=== PATIENT | female | born 1950 | race Caucasian/White ===

== ENCOUNTER 2016-12-22 11:45 | Observation (INO) | payer OTHER ==
[2016-12-22] VITALS (11 sets, daily range): BP systolic 123–201; BP diastolic 56–112; PULSE 74–147; RESP 12–22; TEMP 97.7–98.4; O2SAT 95–100
[~2016-12-22] VITALS: Ht 162.6 cm; Wt 68.0 kg
[2016-12-22] MEDS ORDERED: SODIUM CHLORIDE 0.9% FLUSH 5 ML FLUSH IVF PRN ×2 (12:00→15:15)
[2016-12-22] MEDS ORDERED: DILTIAZEM HCL 25 MG/5 ML VIAL IV ONE (12:00)
[2016-12-22] MEDS ORDERED: ASPIRIN 81 MG CHEW TAB PO ONE (12:00)
[2016-12-22] MEDS ORDERED: LISI-519 PO (12:01)
[2016-12-22] MEDS ORDERED: VITA100T50 PO (12:01)
[2016-12-22] MEDS ORDERED: CALC-131 PO (12:01)
--- NOTE | 2016-12-22 12:14 | PD ---
HPI Chief Complaint: Cardiac Complaint Time Seen by Provider: 12:02 Travel History International Travel<30 days: No Contact w/Intl Traveler<30days: No Traveled to known affect area: No History of Present Illness HPI Patient is a 66-year-old female presenting to emergency for evaluation of chest pain. Patient states he started with tightness in her throat that radiated to her left upper chest wall. She reports feeling palpitations and shortness of breath accompanying the pain. She denies any nausea, vomiting, abdominal pain, back pain, headaches. Patient's past medical history includes mitral valve prolapse, hypertension. Patient takes lisinopril 5 mg daily at bedtime. She reports compliance with this medication. Her last stress test was in 2005 and she had an echocardiogram done 2 years ago. She has seen Dr. Arana one time in the past and her primary care provider is Dr. Abel Moralez. Patient denies any illicit drug use, tobacco, alcohol. She denies taking any over-the- counter supplementations other than vitamin D, calcium, multivitamin. PFSH Past Medical History Cardiovascular Problems: Yes (MITRAL VALVE PROLAPSE) Hypertension: Yes Influenza Vaccination: No ?: Not Past Surgical History Surgical History: No Previous Surgery Social History Alcohol Use: Yes (WINE OCCASIONALLY) Tobacco Use: No Substance Use: No Allergies-Medications (Allergen,Severity, Reaction): Coded Allergies: No Known Allergies (Unverified , 12/22/16) Reported Meds & Prescriptions Reported Meds & Active Scripts Active Reported Calcium & Magnesium (Calcium-Magnesium) 750-465 Mg Tab 1 Tab PO DAILY Vitamin K (Phytonadione) 100 Mcg Tab Unknown Dose PO DAILY Lisinopril 5 Mg Tab 5 Mg PO HS Review of Systems Except as stated in HPI: all other systems reviewed are Neg Cardiovascular: Positive: Chest Pain or Discomfort, Palpitations, Tachycardia Respiratory: Positive: Shortness of Breath Gastrointestinal: No: Nausea, Vomiting Musculoskeletal: No: Myalgias Neurologic: No: Weakness, Dizziness, Syncope, Focal Abnormalities Physical Exam Narrative GENERAL: Developed, well-nourished, alert female. Resting comfortably in no acute distress. SKIN: Warm and dry. HEAD: Atraumatic. Normocephalic. EYES: Pupils equal and round. No scleral icterus. No injection or drainage. ENT: No nasal bleeding or discharge. Mucous membranes pink and moist. NECK: Trachea midline. No JVD. CARDIOVASCULAR: Tachycardic. No murmur appreciated. No peripheral edema. RESPIRATORY: No accessory muscle use. Clear to auscultation. Breath sounds equal bilaterally. GASTROINTESTINAL: Abdomen soft, non-tender, nondistended. Hepatic and splenic margins not palpable. MUSCULOSKELETAL: No obvious deformities. No clubbing. No cyanosis. No edema. NEUROLOGICAL: Awake and alert. No obvious cranial nerve deficits. Motor grossly within normal limits. Normal speech. PSYCHIATRIC: Appropriate mood and affect; insight and judgment normal. Data Data Last Documented VS Vital Signs Date Time Temp Pulse Resp B/P Pulse Ox O2 Delivery O2 Flow Rate FiO2 12/22/16 13:22 89 13 135/82 98 Room Air 12/22/16 12:36 2 12/22/16 11:54 97.7 Orders Electrocardiogram (12/22/16 ) Ckmb (Isoenzyme) Profile (12/22/16 11:59) Complete Blood Count With Diff (12/22/16 11:59) Comprehensive Metabolic Panel (12/22/16 11:59) Magnesium (Mg) (12/22/16 11:59) Prothrombin Time / Inr (Pt) (12/22/16 11:59) Act Partial Throm Time (Ptt) (12/22/16 11:59) Troponin I (12/22/16 11:59) Chest, Single Ap (12/22/16 11:59) Ecg Monitoring (12/22/16 11:59) Bilateral Bp Monitoring (12/22/16 11:59) Iv Access Insert/Monitor (12/22/16 11:59) Oximetry (12/22/16 11:59) Oxygen Administration (12/22/16 11:59) Aspirin Chew (Aspirin Chew) (12/22/16 12:00) Sodium Chloride 0.9% Flush (Ns Flush) (12/22/16 12:00) Thyroid Stimulating Hormone (12/22/16 11:59) Free Thyroxine (T4) (12/22/16 11:59) Diltiazem Inj (Cardizem Inj) (12/22/16 12:00) CKMB (12/22/16 12:55) CKMB% (12/22/16 12:55) Admit Order (Ed Use Only) (12/22/16 13:59) Labs Laboratory Tests Test 12/22/16 12/22/16 12:04 12:55 White Blood Count 9.4 TH/MM3 Red Blood Count 4.74 MIL/MM3 Hemoglobin 14.9 GM/DL Hematocrit 43.7 % Mean Corpuscular Volume 92.3 FL Mean Corpuscular Hemoglobin 31.5 PG Mean Corpuscular Hemoglobin 34.2 % Concent Red Cell Distribution Width 12.9 % Platelet Count 296 TH/MM3 Mean Platelet Volume 8.0 FL Neutrophils (%) (Auto) 54.6 % Lymphocytes (%) (Auto) 34.5 % Monocytes (%) (Auto) 9.1 % Eosinophils (%) (Auto) 1.2 % Basophils (%) (Auto) 0.6 % Neutrophils # (Auto) 5.1 TH/MM3 Lymphocytes # (Auto) 3.3 TH/MM3 Monocytes # (Auto) 0.9 TH/MM3 Eosinophils # (Auto) 0.1 TH/MM3 Basophils # (Auto) 0.1 TH/MM3 CBC Comment DIFF FINAL Differential Comment Prothrombin Time 11.0 SEC Prothromb Time International 1.0 RATIO Ratio Activated Partial 26.4 SEC Thromboplast Time Sodium Level 141 MEQ/L Potassium Level 4.3 MEQ/L Chloride Level 107 MEQ/L Carbon Dioxide Level 24.2 MEQ/L Anion Gap 10 MEQ/L Blood Urea Nitrogen 11 MG/DL Creatinine 0.79 MG/DL Estimat Glomerular Filtration 73 ML/MIN Rate Random Glucose 83 MG/DL Calcium Level 8.9 MG/DL Magnesium Level 2.0 MG/DL Total Bilirubin 0.6 MG/DL Aspartate Amino Transf 23 U/L (AST/SGOT) Alanine Aminotransferase 21 U/L (ALT/SGPT) Alkaline Phosphatase 108 U/L Total Creatine Kinase 123 U/L Creatine Kinase MB 0.8 NG/ML Troponin I LESS THAN 0.02 NG/ML Total Protein 7.1 GM/DL Albumin 3.9 GM/DL Free Thyroxine 1.13 NG/DL Thyroid Stimulating Hormone 0.634 uIU/ML [address] [place] [address] Medical Decision Making Medical Screen Exam Complete: Yes Emergency Medical Condition: Yes Interpretation(s) Vital Signs Date Time Temp Pulse Resp B/P Pulse Ox O2 Delivery O2 Flow Rate FiO2 12/22/16 11:54 97.7 140 22 177/112 100 12/22/16 11:47 98.0 147 20 201/112 95 Differential Diagnosis SVT versus cardiac arrhythmia versus AMI versus thyroid disorder versus electrolyte abnormality versus other Narrative Course Patient is a 66-year-old female presenting to the emergency department for evaluation of tightness in her chest palpitations. Patient presented with a heart rate in the 130s and hypertensive. Labs and imaging ordered and pending. Patient placed on monitoring, continuous pulse oximetry, IV access was initiated. Patient was given 20 mg of IV Cardizem times one dose. Her heart rate responded to 105 -106. Her blood pressure normalized the patient reports feeling better. She has a remote history in 2005, 2006 of the same type of incident occurring. CBC, chemistry, troponin, TSH, free T4 reviewed and are unremarkable. His heart rate remains in the upper 90s. She has had no further symptoms. Advised patient we would like to keep her in the chest pain center for observation. She is agreeable to plan, at bedside. Diagnosis Primary Impression: Chest pain Qualified Code: R07.9 - Chest pain, unspecified type Additional Impression: Tachycardia, unspecified Admitting Information Admitting Physician Requests: Observation Condition: Stable Padmaja Bhatti Dec 22, 2016 12:14
[2016-12-22 12:22] LABS: AUTOMATED NEUTROPHIL # 5.1 TH/MM3 (1.8-7.7); BASOPHIL # 0.1 TH/MM3 (0-0.2); BASOPHIL % 0.6 % (0.0-2.0); EOSINOPHIL # 0.1 TH/MM3 (0-0.4); EOSINOPHIL % 1.2 % (0.0-4.0); HEMATOCRIT 43.7 % (35.0-46.0); HEMO FLAGS DIFF FINAL; LYMPH % 34.5 % (9.0-44.0); LYMPHOCYTE # 3.3 TH/MM3 (1.0-4.8); MEAN CELL VOLUME 92.3 FL (80.0-100.0); MEAN CORPUSCULAR HEMOGLOBIN 31.5 PG (27.0-34.0); MEAN CORPUSCULAR HGB CONC 34.2 % (32.0-36.0); MONO % 9.1 % (0.0-8.0); NEUT % 54.6 % (16.0-70.0); PLATELET COUNT 296 TH/MM3 (150-450); RED BLOOD COUNT 4.74 MIL/MM3 (4.00-5.30); RED CELL DISTRIBUTION WIDTH 12.9 % (11.6-17.2); WHITE BLOOD COUNT 9.4 TH/MM3 (4.0-11.0)
--- NOTE | 2016-12-22 12:28 | RADRPT ---
EXAM DATE/TIME: 12/22/2016 12:10 [facility] COMPARISON: No previous studies available for comparison. INDICATIONS : Chest pain MEDICAL HISTORY : Hypertension. SURGICAL HISTORY : None. ENCOUNTER: Initial ACUITY: 1 day PAIN SCORE: 3/10 LOCATION: chest FINDINGS: Portable AP view of the chest demonstrates a normal-sized cardiac silhouette. No effusion, consolidat ion, or pneumothorax is visualized. The bones and soft tissues demonstrate no acute abnormality. Ther e is calcification of the aorta. CONCLUSION: No acute cardiopulmonary abnormality is identified. Steve Parsons MD on December 22, 2016 at 12:26 Board Certified Radiologist. This report was verified electronically.
[2016-12-22 12:40] LABS: APTT (PATIENT) 26.4 SEC (24.3-30.1)
[2016-12-22 13:34] LABS: ANION GAP 10 MEQ/L (5-15); AST (GOT) 23 U/L (15-37); BICARBONATE 24.2 MEQ/L (21.0-32.0); BLOOD UREA NITROGEN 11 MG/DL (7-18); CHLORIDE 107 MEQ/L (98-107); GLOMERULAR FILTRATION RATE 73 ML/MIN (>89); POTASSIUM 4.3 MEQ/L (3.5-5.1); SODIUM (NA) 141 MEQ/L (136-145)
[2016-12-22 13:36] LABS: ALKALINE PHOSPHATASE 108 U/L (45-117); ALT (GPT) 21 U/L (10-53); CREATINE KINASE 123 U/L (26-192); TOTAL BILIRUBIN ADULT 0.6 MG/DL (0.2-1.0)
[2016-12-22 13:37] LABS: FREE T4 1.13 NG/DL (0.76-1.46)
[2016-12-22 13:49] LABS: CKMB 0.8 NG/ML (0.5-3.6)
[2016-12-22] MEDS ORDERED: ALPRAZolam 0.25 MG TAB PO PRN (15:15)
[2016-12-22] MEDS ORDERED: ONDANSETRON HCL 4 MG/2 ML VIAL IV PRN (15:15)
[2016-12-22] MEDS ORDERED: ACETAMINOPHEN 500 MG CPLT PO PRN (15:15)
[2016-12-22] MEDS ORDERED: ALUMINUM/MAGNESIUM/SIMETH 30 ML CUP PO ONE (15:15)
[2016-12-22] MEDS ORDERED: ACETAMINOPHEN/HYDROcodone 325 MG/7.5 MG TAB PO PRN (15:15)
[2016-12-22] MEDS ORDERED: LIDOCAINE VISCOUS 2% SOLN 15 ML UDC PO ONE (15:15)
[2016-12-22] MEDS ORDERED: ATROPINE/SCOPOLAM/HYOSCYAM/PB ELIXIR 10 ML CUP PO ONE (15:16)
[2016-12-22] MEDS: METOPROLOL TARTRATE 25 MG TAB PO SCH ×2 (15:32→20:35)
[2016-12-22] MEDS: PANTOPRAZOLE SOD 40 MG DELAYED RELEASE TAB PO SCH (15:32)
--- NOTE | 2016-12-22 15:49 | HHI.HP ---
[facility] Primary Care Physician Masood Moralez MD Chief Complaint Chest pain History of Present Illness This is a 66-year-old female that presents to ED to evaluate chest discomfort. 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 She was concerned and was talking to a friend. The friend checked her pulse and found that it was fast. A few minutes later the patient states she was able to feel her heart beating rapidly in her chest which scared her and so she came to the ED. While in the ED she was observed to have a fast heart rate and was given IV Cardizem. The patient states that after getting the medication heart rate slowed down and the discomfort in her neck resolved. She initially was little short of breath. She had no nausea or diaphoresis. No syncopal or near syncopal event. She now can recall that she has had similar episodes of her heart revealed beating rapidly most recently a few weeks ago but never sought treatment. She states she had a cardiac workup about 2005 and had a stress test and Holter monitor and they both were normal. She doesn't really know why she had a Holter monitor as she doesn't recall back been having irregular or fast heartbeats. Patient denies any recent illnesses. Denies recent weight changes. Denies recent travel. She has hypertension and takes lisinopril for that. She also has hyperlipidemia states her primary care physician prescribed Atorvastatin for that a few months ago but she has not taken the medicine yet. Patient states that she has had heartburn recently. She states that 2 nights ago she woke up with some regurgitation. At times she is also sensed that the food was having a difficult time going down when swallowing. Review of Systems General: Patient denies fevers, chills recent, and recent travel HEENT: Patient denies headache, sore throat, difficulty swallowing. Cardiovascular: Has the chest discomfort as mentioned above. [place] as if her heart was beating rapidly. Denies diaphoresis. No syncope. Respiratory: She was initially mildly short of breath. Denies inspirational chest discomfort. Denies coughing wheezing or hemoptysis. GI: Patient denies nausea, vomiting, diarrhea, abdominal pain, bloody stools. Musculoskeletal: Patient denies joint pain or edema. Denies calf pain or edema. Neurovascular: Patient denies numbness, tingling, weakness in extremities. Denies headache. Endocrine: Denies polyuria and polydipsia. Hematologic: Denies easy bruising. Skin: Denies rash or itching. Past Family Social History Allergies: Coded Allergies: No Known Allergies (Unverified , 12/22/16) Past Medical History Hypertension. Hyperlipidemia. Past history tobacco abuse but quit smoking 1990. Denies diabetes, CAD, thyroid disorder. Past Surgical History Tonsillectomy, tubal ligation, and hysterectomy. Reported Medications Reported Meds & Active Scripts Active Reported Calcium & Magnesium (Calcium-Magnesium) 750-465 Mg Tab 1 Tab PO DAILY Vitamin K (Phytonadione) 100 Mcg Tab Unknown Dose PO DAILY Lisinopril 5 Mg Tab 5 Mg PO HS Active Ordered Medications Current Medications Medications (Trade) Dose Ordered Sig/Eliz Route Start Time Stop Time Status Last Admin (NS Flush) 2 ml UNSCH PRN IVF 12/22/16 15:15 (NS Flush) 2 ml BID IVF 12/22/16 21:00 (Tylenol) 500 mg Q4H PRN PO 12/22/16 15:15 ([place] 7.5-325 Mg) 1 tab Q4H PRN PO 12/22/16 15:15 (Zofran Inj) 4 mg Q6H PRN IV 12/22/16 15:15 (Protonix) 40 mg DAILY PO 12/22/16 16:00 (Lopressor) 25 mg Q12HR PO 12/22/16 15:15 (Aspirin) 325 mg DAILY PO 12/23/16 09:00 (Xanax) 0.25 mg Q8H PRN PO 12/22/16 15:15 Family History Denies family history of CAD. Social History Patient quit smoking cigarettes in 1990 prior that she smoked about 1 pack of cigarettes per week for 15 years. She has an occasional glass of wine. Denies illicit drugs. She is 49 years. She works in insurance per Physical Exam Vital Signs Vital Signs Date Time Temp Pulse Resp B/P Pulse Ox O2 Delivery O2 Flow Rate FiO2 12/22/16 14:43 91 16 184/82 99 Room Air 12/22/16 13:22 89 13 135/82 98 Room Air 12/22/16 12:36 97 12 136/86 97 Nasal Cannula 2 12/22/16 12:10 100 Nasal Cannula 2 12/22/16 12:10 105 12 123/56 100 Nasal Cannula 2 12/22/16 11:54 97.7 140 22 177/112 100 12/22/16 11:47 98.0 147 20 201/112 95 Physical Exam GENERAL: This is a well-nourished, well-developed patient, in no apparent distress. Patient speaks in clear complete sentences. Patient is pleasant. HEENT: Head is atraumatic and normocephalic. Neck is supple without lymphadenopathy and trachea is midline. No JVD or carotid bruits. CARDIOVASCULAR: Regular rate and rhythm without murmurs, gallops, or rubs. RESPIRATORY: Clear to auscultation. Breath sounds equal bilaterally. No wheezes , rales, or rhonchi. Chest wall is nontender. No use of accessory muscles. GASTROINTESTINAL: Abdomen is nontender, nondistended. Abdomen soft. No obvious pulsatile mass or bruit. No CVA tenderness. Strong femoral pulses bilaterally. Normal bowel sounds in all quadrants. MUSCULOSKELETAL: Patient is moving upper and lower extremities freely. No calf tenderness or edema, no Homans sign. Strong pulses in upper and lower extremities. NEUROLOGICAL: Patient is alert and oriented. Cranial nerves 2-12 are grossly intact. No focal deficits and speech is clear. SKIN: No rash and turgor is normal. Laboratory Laboratory Tests Test 12/22/16 12/22/16 12:04 12:55 White Blood Count 9.4 Red Blood Count 4.74 Hemoglobin 14.9 Hematocrit 43.7 Mean Corpuscular Volume 92.3 Mean Corpuscular Hemoglobin 31.5 Mean Corpuscular Hemoglobin 34.2 Concent Red Cell Distribution Width 12.9 Platelet Count 296 Mean Platelet Volume 8.0 Neutrophils (%) (Auto) 54.6 Lymphocytes (%) (Auto) 34.5 Monocytes (%) (Auto) 9.1 Eosinophils (%) (Auto) 1.2 Basophils (%) (Auto) 0.6 Neutrophils # (Auto) 5.1 Lymphocytes # (Auto) 3.3 Monocytes # (Auto) 0.9 Eosinophils # (Auto) 0.1 Basophils # (Auto) 0.1 CBC Comment DIFF FINAL Differential Comment Prothrombin Time 11.0 Prothromb Time International 1.0 Ratio Activated Partial 26.4 Thromboplast Time Sodium Level 141 Potassium Level 4.3 Chloride Level 107 Carbon Dioxide Level 24.2 Anion Gap 10 Blood Urea Nitrogen 11 Creatinine 0.79 Estimat Glomerular Filtration 73 Rate Random Glucose 83 Calcium Level 8.9 Magnesium Level 2.0 Total Bilirubin 0.6 Aspartate Amino Transf 23 (AST/SGOT) Alanine Aminotransferase 21 (ALT/SGPT) Alkaline Phosphatase 108 Total Creatine Kinase 123 Creatine Kinase MB 0.8 Troponin I LESS THAN 0.02 Total Protein 7.1 Albumin 3.9 Free Thyroxine 1.13 Thyroid Stimulating Hormone 0.634 3rd Gen Result Diagram: 12/22/16 1204 12/22/16 1255 Imaging Last Impressions Chest X-Ray 12/22/16 1159 Signed Impressions: Service Date/Time: Thursday, December 22, 2016 12:10 - CONCLUSION: No acute cardiopulmonary abnormality is identified. Steve Parsons MD Course Initial EKG in the ED had sinus tachycardia with diffuse ST segment depressions. A repeated EKG after getting Cardizem IV revealed improved heart rate and ST segments had normalized. Assessment and Plan Assessment and Plan * Chest pain: Patient will continue to have serial cardiac enzymes and EKGs for ruling out purposes. She will be seen by Dr. Landry and the chest pain center. If she rules out she will likely have a nuclear stress test in the morning. She would likely be discharged home if the stress test were to be nonischemic. * Hypertension: We'll continue lisinopril. We'll add metoprolol tartrate 25 mg twice a day toppled her blood pressure as well as tachycardia. We'll continue to monitor. * GERD: Will add Protonix. Will give a GI cocktail the ED. Patient should discuss her GI symptoms with her physician to see if they recommend follow-up with a software test and validation engineer for endoscopy. * Hyperlipidemia: Patient should begin taking the statin therapy that has been recommended by her physician. Patient is stable at this time. She is agreeable to this plan. Yan Dolan Dec 22, 2016 15:49
[2016-12-22] MEDS ORDERED: cloNIDine HCL 0.1 MG TAB PO PRN (16:45)
--- NOTE | 2016-12-22 17:22 | EKG ---
Date Performed: 12/22/2016 Time Performed: 11:54:10 PTAGE: 66 years EKG: SINUS TACHYCARDIA ST DEVIATION AND MODERATE T-WAVE ABNORMALITY, CONSIDER INFERIOR ISCHEMIA POOR PRECORDIAL R-WAVE PROGRESSION ABNORMAL ECG NO PREVIOUS TRACING DOCTOR: Blaze Landry Interpretating Date/Time 12/22/2016 17:20:58
--- NOTE | 2016-12-22 17:24 | EKG ---
Date Performed: 12/22/2016 Time Performed: 12:19:30 PTAGE: 66 years EKG: Sinus rhythm POSSIBLE LEFT ATRIAL ENLARGEMENT POOR PRECORDIAL R-WAVE PROGRESSION BORDERLINE ECG PREVIOUS TRACING : 12/22/2016 11.54 DOCTOR: Blaze Landry Interpretating Date/Time 12/22/2016 17:23:17
[2016-12-22 20:00] LABS: CREATINE KINASE 115 U/L (26-192)
[2016-12-22 20:12] LABS: CKMB 0.8 NG/ML (0.5-3.6)
[2016-12-22] MEDS: SODIUM CHLORIDE 0.9% FLUSH 5 ML FLUSH IVF SCH (20:35)
[2016-12-23 00:04] VITALS: BP 142/77; PULSE 62; RESP 19; TEMP 98; O2SAT 97
[2016-12-23 01:26] VITALS: PULSE 67
[2016-12-23 03:23] VITALS: BP 130/62; PULSE 72; RESP 19; TEMP 98.2; O2SAT 95
[2016-12-23 07:57] VITALS: BP 147/68; PULSE 77; RESP 19; TEMP 97.9; O2SAT 97
[2016-12-23 08:00] VITALS: PULSE 77
[2016-12-23] MEDS ORDERED: ASPIRIN 325 MG TAB PO SCH (09:00)
[2016-12-23] MEDS ORDERED: REGADENOSON INJ 0.4 MG/5 ML SYR ONE (09:21)
[2016-12-23] MEDS: PANTOPRAZOLE SOD 40 MG DELAYED RELEASE TAB PO SCH (10:27)
[2016-12-23] MEDS: SODIUM CHLORIDE 0.9% FLUSH 5 ML FLUSH IVF SCH (10:27)
[2016-12-23] MEDS: METOPROLOL TARTRATE 25 MG TAB PO SCH (10:27)
--- NOTE | 2016-12-23 11:02 | RADRPT ---
EXAM DATE/TIME: 12/23/2016 08:53 [facility] COMPARISON: No previous studies available for comparison. INDICATIONS : Chest pain for 1 day. Angina. DOSE: 25.5 mCi Tc99m Myoview at stress. 8.1 mCi Tc99m Myoview at rest. 0.4 mg Lexiscan STRESS SYMPTOMS: Neck tightness and tired. EJECTION FRACTION: > 70% MEDICAL HISTORY : Hypertension. Hypercholesterolemia. Mitral valve prolaspe. SURGICAL HISTORY : None. ENCOUNTER: Initial ACUITY: 1 day PAIN SCALE: 2/10 LOCATION: Bilateral chest TECHNIQUE: The patient underwent pharmacologic stress with infusion of prescribed dose. Continuous ECG tracing was monitored during stress. Gated SPECT imaging was performed after stress and conventional SPECT i maging was performed at rest. The examination was performed on a SPECT/CT scanner, both attenuation and non-corrected datasets were reviewed. FINDINGS: DISTRIBUTION: The maximum perfused segment at stress is in the anterior lateral wall. Moderate gut activity does o bscure the inferior wall. PERFUSION STUDY: The pattern of perfusion at stress is within normal limits. GATED STUDY: There is intact wall motion and thickening without hypokinetic or dyskinetic segments. CONCLUSION: Negative for stress-induced ischemia. RISK CATEGORY: Low (<1% Annual Mortality Rate) Jason Sheridan MD FACR on December 23, 2016 at 10:57 Board Certified Radiologist. This report was verified electronically.
[2016-12-23] MEDS ORDERED: METO25TA3 PO (11:24)
[2016-12-23] MEDS ORDERED: PROT40TA PO (11:24)
--- NOTE | 2016-12-23 11:24 | HHI.DCPOC ---
Discharge Care Plan Diagnosis: (1) Chest pain (2) Hypertension (3) Hyperlipidemia (4) GERD (gastroesophageal reflux disease) Goals to Promote Your Health * To prevent worsening of your condition and complications * To maintain your health at the optimal level Directions to Meet Your Goals Take your medications as prescribed Follow your dietary instruction Follow activity as directed Keep your appointments as scheduled Take your immunizations and boosters as scheduled If your symptoms worsen call your PCP, if no PCP go to Urgent Care Center or Emergency Room Smoking is Dangerous to Your Health. Avoid second hand smoke Call the 24-hour hour crisis hotline for domestic abuse at Yan Dolan Dec 23, 2016 11:24
--- NOTE | 2016-12-23 14:35 | EKG ---
Date Performed: 12/22/2016 Time Performed: 18:49:03 PTAGE: 66 years EKG: Sinus rhythm LEFT ATRIAL ENLARGEMENT ABNORMAL ECG PREVIOUS TRACING : 12/22/2016 15.40 Since previous tracing, no significant change noted DOCTOR: Swapnil Meredith Interpretating Date/Time 12/23/2016 14:33:07
--- NOTE | 2016-12-23 14:35 | EKG ---
Date Performed: 12/22/2016 Time Performed: 15:40:49 PTAGE: 66 years EKG: Sinus rhythm LEFT ATRIAL ENLARGEMENT ABNORMAL ECG PREVIOUS TRACING : 12/22/2016 12.19 DOCTOR: Swapnil Meredith Interpretating Date/Time 12/23/2016 14:33:33
--- NOTE | 2016-12-23 14:36 | TR ---
Date Performed: 12/23/2016 Time Performed: 09:27:03 DOCTOR: Swapnil Meredith DRUG LIST: CLINICAL HISTORY: ANGINA REASON FOR TEST: Angina REASON FOR ENDING: OBSERVATION: CONCLUSION: Lexiscan stress test was performed under standard four minute protocol. Radionucl[place] e was injected one minute prior to ending the test. No electrocardiographic abormalities were present to suggest ischemia. Nuclear imaging and interpretation are pending. COMMENTS:
== END 2016-12-23 12:07 | disposition home or self-care (01) ==
LOC: NEPE 11:45 → NEDA 14:01 → NEPFCDU 16:09
PROVIDERS: ADMIT Family Medicine; ATTEND Family Medicine
DX: R07.89 Other chest pain (principal); K21.9 Gastro-esophageal reflux disease without esophagitis; R06.02 Shortness of breath; R00.2 Palpitations; I34.1 Nonrheumatic mitral (valve) prolapse; I10 Essential (primary) hypertension; R00.0 Tachycardia, unspecified; E78.5 Hyperlipidemia, unspecified; R12 Heartburn; R94.31 Abnormal electrocardiogram [ECG] [EKG]
CPT/HCPCS: 71010; 78452; 80053; 82550; 82552; 83735; 84439; 84443; 84484; 85025; 85610; 85730; 93005; 93017; 96374; 99285; A9502; G0378; J2785